=== PATIENT | male | born 1995 | race Caucasian/White ===

== ENCOUNTER → 2024-04-02 | Outpatient (CLI) | payer OTHER, SELFPAY ==
--- NOTE | 2024-04-02 | XR_ITS ---
Examination: PA lateral chest 2 views TECHNIQUE: Upright PA lateral chest 2 views Exam date and time: April 02, 2024 1322 hours INDICATIONS: Intermittent chest pain beginning one year ago coughing 5 days FINDINGS: Normal heart size Mildly prominent hilar regions No lobar pneumonia or pulmonary edema IMPRESSION: Mildly prominent hilar regions, recommend 3 month follow-up PA lateral chest x-ray
== END | disposition home or self-care (01) ==
LOC: CDIM 12:14
PROVIDERS: PCP Family Medicine; Referring Provider Internal Medicine; Visit Provider Internal Medicine
DX: R91.8 Other nonspecific abnormal finding of lung field (principal)
CPT/HCPCS: 71046